=== PATIENT | female | born 1985 | race Caucasian/White ===

== ENCOUNTER 2019-04-03 13:41 | Emergency (ER) | payer MEDICAID ==
[~2019-04-03] VITALS: Ht 170.2 cm; Wt 63.5 kg
[2019-04-03 13:45] VITALS: Ht 170.2 cm; Wt 63.5 kg
[2019-04-03 16:35] VITALS: BP 128/75
== END 2019-04-03 16:35 | disposition home or self-care (01) ==
LOC: ED 13:41
DX: S82.65XA Nondisplaced fracture of lateral malleolus of left fibula, initial encounter for closed fracture (principal); X50.1XXA Overexertion from prolonged static or awkward postures, initial encounter; Y93.66 Activity, soccer; Y92.322 Soccer field as the place of occurrence of the external cause; Y99.8 Other external cause status